=== PATIENT | female | born 1955 | race American Indian/Alaskan Native ===

== ENCOUNTER 2017-09-14 12:34 | Emergency (ER) | payer OTHER ==
[2017-09-14 12:34] VITALS: BMI 30.2
[2017-09-14 13:04] VITALS: TEMP 98.5
[2017-09-14] MEDS ORDERED: Sodium Chloride 0.9% 1,000 ML IV ONE (13:04)
--- NOTE | 2017-09-14 13:14 | C.PDOC ---
History Of Present Illness 62 year old female presents to the ED c/o urinary frequency for the past week. Patient reports that Tuesday she noted a burning sensation while urinating. Patient denies fever, chills, nausea, vomit, abdominal pain, back pain, hematuria, vaginal bleeding, vaginal discharge. Time Seen by Provider: 09/14/17 13:04 Chief Complaint (Nursing): Female Genitourinary History Per: Patient History/Exam Limitations: no limitations Onset/Duration Of Symptoms: Days Current Symptoms Are (Timing): Still Present Severity: None Exacerbating Factor(s): Pos: None Recent travel outside of the [place]: No Additional History Per: Patient Past Medical History Reviewed: Historical Data, Nursing Documentation, Vital Signs Vital Signs: Last Vital Signs Temp 98.5 F 09/14/17 14:06 Pulse 59 L 09/14/17 14:06 Resp 18 09/14/17 14:06 BP 145/69 09/14/17 14:06 Pulse Ox 100 09/14/17 14:06 - Medical History PMH: Anxiety, Bipolar Disorder, Depression, HTN, Hypothyroidism, Schizophrenia Surgical History: Back Surgery - [facility] Procedures OTHER SKIN & SUBQ I D (09/25/13) Family History: States: Unknown Family Hx - Social History Hx Tobacco Use: No Hx Alcohol Use: No Hx Substance Use: No - Immunization History Hx Tetanus Toxoid Vaccination: Yes Hx Influenza Vaccination: No Hx Pneumococcal Vaccination: No Review Of Systems Constitutional: Negative for: Fever, Chills Cardiovascular: Negative for: Chest Pain Respiratory: Negative for: Cough, Shortness of Breath Gastrointestinal: Negative for: Nausea, Vomiting, Abdominal Pain Genitourinary: Positive for: Dysuria, Frequency. Negative for: Hematuria, Vaginal Discharge, Vaginal Bleeding Musculoskeletal: Negative for: Neck Pain Skin: Negative for: Rash Neurological: Negative for: Weakness, Numbness, Headache Physical Exam - Physical Exam Appears: Non-toxic, No Acute Distress Skin: Normal Color, Warm, Dry Head: Atraumatic, Normacephalic Nose: No Discharge Oral Mucosa: Moist Neck: Normal ROM, Supple Chest: Symmetrical Cardiovascular: Rhythm Regular, No Murmur Respiratory: Normal Breath Sounds, No Rales, No Rhonchi, No Wheezing Gastrointestinal/Abdominal: Soft, No Tenderness, No Distention, No Rebound Extremity: Normal ROM, No Pedal Edema, No Calf Tenderness, No Swelling Neurological/Psych: Oriented x3, Normal Speech, Normal Cognition Gait: Steady ED Course And Treatment - Laboratory Results Result Diagrams: 09/14/17 13:26 09/14/17 13:26 Lab Interpretation: Normal Interpretation Of Abnormal: urine (+) WBC O2 Sat by Pulse Oximetry: 99 (On RA) Pulse Ox Interpretation: Normal Progress Note: Treated with IVF NSS and rocephin IV. On re-evaluation abdomen soft, lungs clear Reassessment Condition: Improved Medical Decision Making Medical Decision Making: Impression : urinary frequency, dysuria Plan: * Blood work * Urine culture * UA * IV fluids Disposition Counseled Patient/Family Regarding: Studies Performed, Diagnosis, Need For Followup, Rx Given - Disposition Referrals: [facility] [Outside] [facility] [Outside] Disposition: HOME/ ROUTINE Disposition Time: 12:00 Condition: STABLE Additional Instructions: Return to ED if any increase symptoms Prescriptions: Cephalexin [cephalexin] 500 mg PO Q6 #28 cap Instructions: Urinary Tract Infection in Women (ED) Forms: [email or web address] ([place]ese) - POA Present On Arrival: None - Clinical Impression Clinical Impression: UTI (urinary tract infection) - PA / NUTRITION TECH / Resident Statement MD/DO has reviewed & agrees with the documentation as recorded. - Scribe Statement The provider has reviewed the documentation as recorded by the Scribe Ryan Palomo All medical record entries made by the Scribe were at my direction and personally dictated by me. I have reviewed the chart and agree that the record accurately reflects my personal performance of the history, physical exam, medical decision making, and the department course for this patient. I have also personally directed, reviewed, and agree with the discharge instructions and disposition.
[2017-09-14] MEDS ORDERED: Sodium Chloride 0.9% 1,000 ML ONE (13:17)
[2017-09-14 13:29] LABS: RBC URINE 307 /hpf (0-3); URINE BILIRUBIN NEGATIVE (NEGATIVE); URINE BLOOD 3+ (NEGATIVE); URINE COLOR Yellow (YELLOW); URINE GLUCOSE (UA) NORMAL (Normal); URINE KETONE NEGATIVE (NEGATIVE); URINE LEUKOCYTE ESTERASE 3+ Leu/uL (Negative); URINE PROTEIN 2+ mg/dL (NEGATIVE); URINE UROBILINOGEN NORMAL mg/dL (0.2-1.0); WBC CLUMPS MANY /hpf; WBC URINE 3008 /hpf (0-5)
[2017-09-14 13:29] LABS: BASO # 0.1 K/uL (0.0-0.2); BASO % 1.1 % (0.0-2.0); EOS # 0.2 K/uL (0.0-0.7); EOS % 2.8 % (0.0-4.0); HEMATOCRIT 36.5 % (34.0-47.0); LYMPH # 2.1 K/uL (1.0-4.3); LYMPH % 36.8 % (20.0-40.0); MEAN CELL VOLUME 84.8 fL (81.0-99.0); MEAN CORPUSCULAR HEMOGLOBIN 27.6 pg (27.0-31.0); MEAN CORPUSCULAR HGB CONC 32.5 g/dL (33.0-37.0); MEAN PLATELET VOLUME 10.5 fL (7.2-11.7); MONO # 0.5 K/uL (0.0-0.8); MONO % 7.9 % (0.0-10.0); NRBC % 0.1 % (0.0-2.0); RED CELL DISTRIBUTION WIDTH 13.8 % (11.5-14.5); WHITE BLOOD COUNT 5.8 K/uL (4.8-10.8)
[2017-09-14] MEDS ORDERED: cefTRIAXone IV 1 gm in Dextros 50 ML IV ONE (13:32)
[2017-09-14 13:41] LABS: ALKALINE PHOSPHATASE 59 U/L (38-126); ALT/SGPT 36 U/L (9-52); AST/SGOT 17 U/L (14-36); BILIRUBIN,TOTAL 0.5 mg/dL (0.2-1.3); BLOOD UREA NITROGEN 12 mg/dL (7-17); CALCIUM 8.8 mg/dl (8.6-10.4); CARBON DIOXIDE 27 mmol/L (22-30); CHLORIDE 106 mmol/L (98-107); GFR AFRICAN-AMERICAN > 60; GLUCOSE,RANDOM 101 mg/dL (65-105); POTASSIUM 3.7 mmol/L (3.6-5.2); SODIUM 141 mmol/L (132-148)
[2017-09-14] MEDS ORDERED: cefTRIAXone IV 1 gm in Dextros 50 ML IVPB ONE (14:03)
[2017-09-14 14:07] VITALS: BP 145/69; PULSE 59; RESP 18
[2017-09-14 17:42] VITALS: O2SAT 99
== END 2017-09-14 14:30 | disposition home or self-care (01) ==
LOC: C.ER 12:34
DX: N39.0 Urinary tract infection, site not specified (principal)
CPT/HCPCS: 80053; 81001; 85025; 87086; 87181; 96360; 99285; J0696; J7040

== ENCOUNTER 2017-11-18 08:40 | Emergency (ER) | payer OTHER ==
[2017-11-18 08:41] VITALS: BMI 30.2
[2017-11-18] MEDS ORDERED: Naproxen 550 mg Tab PO STA (09:03)
[2017-11-18] MEDS ORDERED: Naproxen 550 mg Tab PO ONE (09:18)
--- NOTE | 2017-11-18 10:14 | C.PDOC ---
History Of Present Illness 62-year-old female, presents to the emergency department with complaints of three-week duration of productive cough and chills. Patient was seen by her PMD and given "antibiotics" and cough medication, and she was instructed to go for outpatient chest x-ray that she did not follow up for. Patient states symptoms have been gradually worsening, resulting in her coming to ED for evaluation. Pain worsens with deep breath. Denies nausea/vomiting, fevers or chills. Time Seen by Provider: 11/18/17 08:46 Chief Complaint (Nursing): Shortness Of Breath History Per: Patient History/Exam Limitations: no limitations Onset/Duration Of Symptoms: Hrs Current Symptoms Are (Timing): Still Present Past Medical History Reviewed: Historical Data, Nursing Documentation, Vital Signs Vital Signs: Last Vital Signs Temp 98.2 F 11/18/17 10:49 Pulse 63 11/18/17 10:49 Resp 16 11/18/17 10:49 BP 148/83 11/18/17 10:49 Pulse Ox 99 11/18/17 11:09 - Medical History PMH: Anxiety, Asthma, Bipolar Disorder, Depression, HTN, Hypothyroidism, Schizophrenia Surgical History: Back Surgery (lipoma) - [facility] Procedures OTHER SKIN & SUBQ I D (09/25/13) Family History: States: No Known Family Hx - Social History Hx Tobacco Use: No Hx Alcohol Use: No Hx Substance Use: No - Immunization History Hx Tetanus Toxoid Vaccination: No Hx Influenza Vaccination: Yes Hx Pneumococcal Vaccination: Yes Review Of Systems Except As Marked, All Systems Reviewed And Found Negative. Constitutional: Negative for: Fever, Chills Cardiovascular: Positive for: Chest Pain. Negative for: Palpitations Respiratory: Positive for: Cough. Negative for: Shortness of Breath Gastrointestinal: Negative for: Nausea, Vomiting Musculoskeletal: Negative for: Back Pain Skin: Negative for: Rash Neurological: Negative for: Weakness, Numbness, Headache, Dizziness Physical Exam - Physical Exam Appears: Non-toxic, No Acute Distress, Other (anxious) Skin: Normal Color, Warm, Dry, No Rash Head: Normacephalic Eye(s): bilateral: PERRL Nose: Normal Oral Mucosa: Moist Lips: Normal Appearing Neck: Normal ROM Chest: Symmetrical Cardiovascular: Rhythm Regular, No Murmur Respiratory: Normal Breath Sounds, No Accessory Muscle Use, Rhonchi (scattered) Extremity: Normal ROM Neurological/Psych: Oriented x3, Normal Speech ED Course And Treatment O2 Sat by Pulse Oximetry: 99 (RA) Pulse Ox Interpretation: Normal - Radiology CXR: Interpreted by Me, Viewed By Me CXR Interpretation: Yes: No Acute Disease. No: Infiltrates, Cardiomegaly, Pnemothorax Progress Note: Bloodwork, EKG, Chest X-Ray ordered and reviewed. Patient treated with PO Naproxen and Tessalon. Disposition - Disposition Disposition: HOME/ ROUTINE Disposition Time: 11:15 Condition: STABLE Forms: [employer] (French) - PA / EXAMINATION GRADER / Resident Statement MD/DO has reviewed & agrees with the documentation as recorded. - Scribe Statement The provider has reviewed the documentation as recorded by the Scribe (Caren Pollack) All medical record entries made by the Scribe were at my direction and personally dictated by me. I have reviewed the chart and agree that the record accurately reflects my personal performance of the history, physical exam, medical decision making, and the department course for this patient. I have also personally directed, reviewed, and agree with the discharge instructions and disposition.
--- NOTE | 2017-11-18 10:30 | RAD ---
HISTORY: COUGH, FEVER COMPARISON: Chest x-ray performed 08/31/14 TECHNIQUE: Chest PA and lateral FINDINGS: Examination limited by habitus. LUNGS: No focal consolidation. Please note that chest x-ray has limited sensitivity for the detection of pulmonary masses. PLEURA: No significant pleural effusion identified. No definite pneumothorax . CARDIOVASCULAR: The cardiomediastinal silhouette appears within normal limits of size. OSSEOUS STRUCTURES: No acute osseous abnormality identified. VISUALIZED UPPER ABDOMEN: Unremarkable. OTHER FINDINGS: None. IMPRESSION: No acute findings identified.
[2017-11-18 10:50] VITALS: TEMP 98.2
[2017-11-18 11:52] VITALS: BP 160/90; PULSE 71; RESP 18; O2SAT 100
--- NOTE | 2017-11-18 13:09 | CARD ---
APPROVED REPORT EKG Measurement Heart [id number] <Conclusion> Normal sinus rhythm Nonspecific T wave abnormality Abnormal ECG
== END 2017-11-18 11:55 | disposition home or self-care (01) ==
LOC: C.ER 08:40
DX: J06.9 Acute upper respiratory infection, unspecified (principal); I10 Essential (primary) hypertension; Z87.891 Personal history of nicotine dependence